=== PATIENT | female | born 1930 | race Caucasian/White ===

== ENCOUNTER 2016-08-19 11:17 | Emergency (ER) | payer MEDICARE, OTHER ==
[~2016-08-19] VITALS: Ht 170.2 cm; Wt 65.9 kg
[2016-08-19 11:23] VITALS: Ht 170.2 cm; Wt 65.9 kg
[2016-08-19] MEDS ORDERED: LIDOCAINE 1%/EPI (MDV) 20 ML INJ INJ STA (11:37)
[2016-08-19] MEDS ORDERED: DIPHTH/TET/ACEL PERTUSS (ADULT) 0.5 ML VIAL IM* ONE (12:00)
--- NOTE | 2016-08-19 12:28 | RADRPT ---
PROCEDURE: XR Left Hand. CLINICAL INDICATION: Left hand pain, fall TECHNIQUE: Three views of the left hand were obtained. COMPARISON: No prior studies are available for comparison. FINDINGS: There is no radiographic evidence of acute fracture. There is severe polyarticular osteoarthrosis i nvolving the triscaphe, first carpometacarpal, metacarpophalangeal, and distal interphalangeal joint s. There is a chronic bone fragment along the radial aspect of the second distal interphalangeal maryjnae int. There is also a chronic osseous fusion at the fifth distal interphalangeal joint which may be from previous trauma, remote infection or degenerative in nature. The bones are osteopenic. IMPRESSION: 1. No radiographic evidence of acute osseous abnormality. 2. 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 RPTAT: UU .Dev Mixon MD, Date Time Electronically viewed and signed by .Dev Mixon MD, on 08/19/2016 12:27 .K/
--- NOTE | 2016-08-19 12:34 | RADRPT ---
PROCEDURE: XR Chest 1 View. CLINICAL INDICATION: Chest pain and trauma TECHNIQUE: AP view of the chest were obtained. COMPARISON: None. FINDINGS: The heart size is within normal limits. Calcified atherosclerosis is noted in the aorta. The lungs are hyperexpanded. Diffuse mild interstitial prominence is seen in both lungs. No consolidations ar e identified. No pneumothorax is seen. Calcified breast implants are seen over both sides of the c hest. The osseous structures are osteopenic, but appear grossly intact. Degenerative changes are n oted in the shoulders. IMPRESSION: Calcified atherosclerosis in the aorta. Hyperexpanded lungs with diffuse mild interstitial prominence in both lungs. Interstitial prominenc e could be chronic. Findings could reflect COPD. No visualized traumatic injury. If there is high clinical suspicion for traumatic injury, further evaluation with CT should be consi dered. RPTAT: AA .Quan Upton MD, Date Time Electronically viewed and signed by .Quan Upton MD, on 08/19/2016 12:33 .P/
[2016-08-19] MEDS ORDERED: ONDANSETRON (ODT) 4 MG TAB ODT STA (12:37)
--- NOTE | 2016-08-19 12:39 | RADRPT ---
PROCEDURE: CT Brain without contrast. CLINICAL INDICATION: Pain, headache TECHNIQUE: Routine CT scan of the brain was performed on a high resolution multi detector scanner without intravenous contrast. One or more of the following dose reduction techniques were used: Auto mated exposure control; Adjustment of the mA and/or kV according to patient size; Use of iterative r econstruction technique. CTDI = 39 mGy. DLP = 554 mGy-cm. COMPARISON: No prior relevant examinations are available for comparison. FINDINGS: Hemorrhage: No evidence of intracranial hemorrhage. Acute ischemic changes: No evidence of acute ischemic changes. Mass effect/Midline shift: None. Parenchymal volume: Within normal limits for age. Ventricular system: Concordant with parenchymal volume. 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 There are scattered ar eas of low attenuation change within the supratentorial white matter most compatible with moderate c hronic microvascular ischemic changes. Atherosclerotic calcifications of the cavernous portions of both internal carotid arteries are prese nt. Extracranial soft tissues: Mild left-sided supraorbital soft tissue swelling is present. Calvarium: No fractures. Paranasal sinuses: Visualized paranasal sinuses are clear. Mastoid air cells: Visualized mastoid air cells are clear. IMPRESSION: No acute intracranial abnormalities. Moderate chronic-appearing microvascular ischemic changes of the supratentorial white matter with sm all chronic infarct of the left basal ganglia. RPTAT: AADD .Brandon Fried MD, Date Time Electronically viewed and signed by .Brandon Fried MD, MD on 08/19/2016 12:38 .B/
[2016-08-19] MEDS ORDERED: HYDROCODONE/APAP (10/325) TAB PO ONE (13:00)
--- NOTE | 2016-08-19 13:03 | RADRPT ---
PROCEDURE: CT Cervical Spine without contrast. CLINICAL INDICATION: Trauma due to a fall. Neck pain. TECHNIQUE: Helical axial sections were obtained through the cervical spine without intravenous con trast enhancement. Sagittal and coronal reformatted images were accomplished using the data from th e axial images. Total exam DLP is 394.37 mGy-cm. CTDIvol is 22.07 mGy. One or more of the followi ng dose reduction techniques were used: Automated exposure control, adjustment of the mA and/or kV a ccording to patient size, use of iterative reconstruction technique. COMPARISON: No prior studies are available for comparison. FINDINGS: There is normal stature and alignment of the vertebrae. There is no fracture. There are degenerative changes throughout with disk space narrowing and osteophytes at all levels. There is fusion at the disk level at C2-3 due to degenerative change. At C3-4, there are large osteophytes and right foraminal stenosis. At C4-5, there is mild central stenosis due to posterior osteophytes. At C5-6, there is central stenosis and left foraminal stenosis due to osteophytes. At C6-7, there is mild left foraminal stenosis. There is no lytic or blastic lesion. The paravertebral soft tissues are normal. IMPRESSION: 1. No fracture. 2. Degenerative changes with spinal stenosis as described above. RPTAT: QQ .Domenic Alvarenga MD, Date Time Electronically viewed and signed by .Domenic Alvarenga MD, on 08/19/2016 13:02 .R/
[2016-08-19] MEDS ORDERED: HYDR-902 PO ×2 (13:25→13:43)
[2016-08-19] MEDS ORDERED: DOCU-144 PO (13:25)
--- NOTE | 2016-08-19 13:27 | ERD ---
ER Documentation Chief Complaint Date/Time DATE: 08/19/16 TIME: 13:27 Chief Complaint Fall HPI Patient is an 86-year-old female who presents after a trip and fall. The patient has a laceration to the forehead in 2 places and a skin tear to the left hand. She has headache, left-sided rib pain, and left-sided hand pain. This happened just prior to arrival. She did not lose consciousness. There was no syncope. She tripped over the curb. ROS All systems reviewed and are negative except as per history of present illness. Medications Home Meds Active Scripts Docusate Sodium* (Colace*) 100 Mg Capsule, 100 MG PO TID, #30 CAP Prov:JOHNATHON ESCOBAR MD 08/19/16 Hydrocodone/Acetaminophen ([place] 10-325 Tablet) 1 Each Tablet, 1 TAB PO Q6H Y for PAIN, #7 TAB Prov:JOHNATHON ESCOBAR MD 08/19/16 Reported Medications Hydrocodone/Acetaminophen ([place] 10-325 Tablet) 1 Each Tablet, 1 EACH PO TID, TAB 08/19/16 Lorazepam* (Lorazepam*) 1 Mg Tablet, 1 MG PO HS Y for ANXIETY, #30 TAB 08/19/16 Atorvastatin Calcium* (Atorvastatin Calcium*) 20 Mg Tablet, 20 MG PO QHS, #30 TAB 08/19/16 Levothyroxine Sodium* (Levothyroxine Sodium*) 112 Mcg Tablet, 112 MCG PO BEFORE BREAKFAST, #30 TAB 08/19/16 Allergies Allergies: Coded Allergies: No Known Allergy (Unverified , 08/19/16) PMhx/Soc Medical and Surgical Hx: pt denies Medical Hx, pt denies Surgical Hx FmHx Family History: No diabetes Physical Exam Vitals Vital Signs Date Time Temp Pulse Resp B/P Pulse Ox O2 Delivery O2 Flow Rate FiO2 08/19/16 13:39 98.6 73 18 143/71 100 Room Air 08/19/16 11:23 98.6 72 18 147/75 98 Physical Exam Const: No acute distress Head: Laceration 2 to the forehead Eyes: Normal Conjunctiva ENT: Normal External Ears, Nose and Mouth. Neck: Full range of motion..~ No meningismus. Resp: Clear to auscultation bilaterally Cardio: Regular rate and rhythm, no murmurs Abd: Soft, non tender, non distended. Normal bowel sounds Skin: 1 cm and 0.5 cm laceration to the forehead, skin tear to left hand approximately 4 cm Back: No midline or flank tenderness Ext: No cyanosis, or edema Neur: Awake and alert Psych: Normal Mood and Affect Results 24 hrs Current Medications Medications (Trade) Dose Ordered Sig/Damaso Route PRN Reason Start Time Stop Time Status Last Admin Dose Admin Diphtheria/ Tetanus/Acell Pertussis (Adacel) 0.5 ml ONCE ONCE IM* 08/19/16 12:00 08/19/16 12:01 DC 08/19/16 12:10 Lidocaine/ Epinephrine (Xylocaine 1%/ Epi (Mdv) 20 ml) 20 ml ONCE STAT INJ 08/19/16 11:37 08/19/16 11:40 DC Acetaminophen/ Hydrocodone Bitart ([place] (10/325)) 1 tab ONCE ONCE PO 08/19/16 13:00 08/19/16 13:01 DC 08/19/16 13:23 Ondansetron HCl 4 mg 4 mg ONCE STAT ODT 08/19/16 12:37 08/19/16 12:38 DC 08/19/16 13:23 Sodium Chloride (NS) 1,000 ml @ 200 mls/hr Q5H STAT IV 08/19/16 13:32 08/19/16 18:31 Procedures/MDM EKG read by me: Rate/Rhythm: Regular rate and rhythm at a rate of 66 Intervals: Normal Impression: No evidence of ischemia or arrhythmia CT head negative for intracranial hemorrhage or skull fracture per radiology. CT cervical spine negative for fracture per radiology. X-ray left hand negative for fracture per radiology. Chest x-ray negative for traumatic injury per radiology. Laceration Repair #1 by me: Anesthesia: None required Location: Forehead Tendon/Joint/Nerves: No injury Foreign body: None detected after copious irrigation and exploration Technique: Dermabond Complexity: No subcutaneous sutures/mucosal repair/ edge excision Post Closure Length: 1 cm Laceration Repair #2 by me: Anesthesia: None required Location: Forehead Tendon/Joint/Nerves: No injury Foreign body: None detected after copious irrigation and exploration Technique: Dermabond Complexity: No subcutaneous sutures/mucosal repair/ edge excision Post Closure Length: 0.5 cm Laceration Repair #3 by me: Anesthesia: None required Location: Left hand Tendon/Joint/Nerves: No injury Foreign body: None detected after copious irrigation and exploration Technique: Dermabond and Steri-Strips Complexity: No subcutaneous sutures/mucosal repair/ edge excision Post Closure Length: 4 cm Patient's bleeding was easily controlled in the department and there is no indication of anemia. No evidence of compartment syndrome, neurologic injury, vascular injury, open joint, tendon laceration, or foreign body. Patient is appropriate for outpatient follow up. 48 hour wound check. Scar minimization instructions given. Departure Diagnosis: Primary Impression: Concussion Encounter type: initial encounter Loss of consciousness presence/duration: without LOC Qualified Code: S06.0X0A - Concussion, without loss of consciousness, initial encounter Additional Impressions: Laceration Contusion Encounter type: initial encounter Contusion area: thoracic wall Contusion of thoracic wall detail: back wall of thorax Laterality: left Qualified Code : S20.222A - Contusion of left back wall of thorax, initial encounter Fall Encounter type: initial encounter Qualified Code: W19.XXXA - Fall, initial encounter Condition: Fair Patient Instructions: Concussion, Fall, Mechanical, Laceration, All Referrals: Your doctor Additional Instructions: Call your primary care doctor TOMORROW for an appointment during the next 1-2 days.See the doctor sooner or return here if your condition worsens before your appointment time. JOHNATHON ESCOBAR MD Aug 19, 2016 13:27
[2016-08-19] MEDS ORDERED: SOD CHLORIDE 0.9% 1,000 ML IV STA (13:32)
[2016-08-19] MEDS ORDERED: SYN112 PO (13:37)
[2016-08-19] MEDS ORDERED: ATOR20TA38 PO (13:38)
[2016-08-19 13:39] VITALS: BP 143/71; PULSE 73; RESP 18; TEMP 98.6
[2016-08-19] MEDS ORDERED: LORA1TAB PO (13:42)
== END 2016-08-19 13:40 | disposition home or self-care (01) ==
LOC: E/R 11:17
DX: S06.0X0A Concussion without loss of consciousness, initial encounter (principal); S20.222A Contusion of left back wall of thorax, initial encounter; R07.9 Chest pain, unspecified; W01.0XXA Fall on same level from slipping, tripping and stumbling without subsequent striking against object, initial encounter; Y92.9 Unspecified place or not applicable
CPT/HCPCS: 12002; 12011; 70450; 71010; 72125; 73130; 90471; 90715; 99285; J7030